=== PATIENT | male | born 1975 | race Two or more races ===

== ENCOUNTER 2024-08-24 10:23 | Inpatient (IN) | payer OTHER ==
[~2024-08-24] VITALS: Ht 185.4 cm; Wt 115.1 kg
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
[2024-08-24 11:10] LABS: Basophils # (auto) 0.1 10 ^3/uL (0-0.2); Basophils % (auto) 1.9 % (0.0-2.0); Eosinophils # (auto) 0.2 10 ^3/uL (0-0.8); Eosinophils % (auto) 2.2 % (0.0-7.0); Hematocrit 49.3 % (41.0-53.0); Lymphocytes # (auto) 2.2 10 ^3/uL (0.4-5.4); Lymphocytes % (auto) 31.7 % (10.0-50.0); Mean Corpuscular Hemoglobin 30.6 pg (28.0-32.0); Mean Corpuscular Hgb Conc. 34.4 g/dL (32.0-36.0); Mean Corpuscular Volume 88.9 fL (80.0-100.0); Monocytes # (auto) 0.5 10 ^3/uL (0-1.3); Monocytes % (auto) 6.8 % (0.0-12.0); Neutrophils % (auto) 57.4 % (37.0-80.0); Nucleated Red Blood Cells % 0.1 %; Platelet Count (auto) 190 10^3/uL (140-450); Red Blood Cells 5.54 10^6/uL (4.5-5.90); Red Cell Distribution Width 13.4 % (11.8-14.3)
[2024-08-24 11:31] LABS: Alanine Aminotransferase 64 U/L (7-40); Albumin 4.8 g/dL (3.2-4.8); Alkaline Phosphatase 84 U/L (46-116); Anion Gap 8 (5-15); Aspartate Aminotransferase 29 U/L (13-40); BUN/Creatinine Ratio 11.2 (10.0-20.0); Bilirubin, Total 0.8 mg/dL (0.2-1.0); Blood Alcohol < 3.0 mg/dL (<10); Blood Urea Nitrogen 12 mg/dL (9-23); Calcium 10.3 mg/dL (8.7-10.4); Carbon Dioxide 25 mmol/L (20-31); Chloride 105 mmol/L (98-107); Glucose 95 mg/dL (74-106); Potassium 3.7 mmol/L (3.5-5.1); Sodium 138 mmol/L (136-145)
[2024-08-24 11:32] LABS: Total Protein 7.8 g/dL (5.7-8.2)
[2024-08-24] MEDS: NALOXONE HCL 1MG/ML 2ML SYRINGE IV ONE (11:37)
[2024-08-24] MEDS ORDERED: NALOXONE HCL 2 MG in D5W 5% 495 ML IV ONE (13:30)
[2024-08-24 13:34] LABS: Amphetamine Screen, Urine Neg (NEGATIVE); Barbiturate Scree,Urine Neg (NEGATIVE); Benzodiazephine Screen, Urine Neg (NEGATIVE); Cocaine Screen, Urine Neg (NEGATIVE); Opiate Scree,Urine Neg (NEGATIVE)
[2024-08-24 13:35] LABS: Cannabinoid Screen, Urine Neg (NEGATIVE); Phencyclidine Screen, Urine Neg (NEGATIVE)
[2024-08-24] MEDS: NALOXONE HCL 2 MG in SODIUM CHL 0.9% 495 ML IV ONE (14:19)
[2024-08-24] MEDS: ACETAMINOPHEN 325 MG TAB PO ONE (14:54)
[2024-08-24 14:57] VITALS: PULSE 84; RESP 18; O2SAT 97
[2024-08-24] MEDS ORDERED: MAALOX PLUS or MAALOX 30 ML PO PRN (16:00)
[2024-08-24] MEDS ORDERED: ACETAMINOPHEN 325 MG TAB PO PRN (16:00)
[2024-08-24] MEDS ORDERED: TEMAZEPAM 15 MG CAP PO PRN (16:00)
[2024-08-24] MEDS ORDERED: DOCUSATE SOD 100 MG CAP PO PRN (16:00)
[2024-08-24] MEDS ORDERED: LORazepam 0.5 MG TAB PO PRN (16:00)
[2024-08-24] MEDS ORDERED: NALOXONE HCL 0.4 MG/ML VIAL IM PRN (16:00)
[2024-08-24] MEDS ORDERED: HYDROcodone-ACET 5/325MG TAB PO PRN (16:00)
[2024-08-24] MEDS ORDERED: MORPHINE SULFATE INJ 2 MG/ml SYRG IV PRN (16:00)
[2024-08-24] MEDS ORDERED: ONDANSETRON HCL 4 MG/2 ML VIAL IV PRN (16:00)
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
--- NOTE | 2024-08-24 16:29 | DVH ---
CHEST RADIOGRAPH Indication: base line evaluation Technique: Single frontal view of the chest was obtained Comparison: None FINDINGS: Lines and Tubes: None Lungs: No focal consolidation. Pleura: No effusion. No pneumothorax. Cardiomediastinal contours: Unremarkable Bones: No acute osseous abnormality. IMPRESSION: 1. No radiographic evidence of acute cardiopulmonary disease. HS:Y
[2024-08-24] MEDS: SODIUM CHLORIDE 0.9% 1,000 ML IV SCH (16:33)
[2024-08-24 16:54] LABS: Basophils # (auto) 0.1 10 ^3/uL (0-0.2); Basophils % (auto) 1.2 % (0.0-2.0); Eosinophils # (auto) 0.2 10 ^3/uL (0-0.8); Eosinophils % (auto) 2.6 % (0.0-7.0); Hematocrit 47.9 % (41.0-53.0); Hemoglobin 16.6 g/dL (13.5-17.5); Lymphocytes % (auto) 34.2 % (10.0-50.0); Mean Corpuscular Hemoglobin 30.6 pg (28.0-32.0); Mean Corpuscular Hgb Conc. 34.7 g/dL (32.0-36.0); Mean Corpuscular Volume 88.2 fL (80.0-100.0); Monocytes # (auto) 0.6 10 ^3/uL (0-1.3); Neutrophils # (auto) 4.7 10 ^3/uL (1.6-8.6); Nucleated Red Blood Cells % 0.1 %; Platelet Count (auto) 198 10^3/uL (140-450); Red Blood Cells 5.43 10^6/uL (4.5-5.90); Red Cell Distribution Width 13.5 % (11.8-14.3); White Blood Cell 8.6 10^3/uL (4.4-10.8)
[2024-08-24 20:22] VITALS: BP 134/96; PULSE 80; RESP 18; TEMP 98.3; O2SAT 97; O2SAT 98
[2024-08-24 21:00] VITALS: BP 132/92; PULSE 77; RESP 18; TEMP 98; O2SAT 98
[2024-08-25 01:00] VITALS: BP 115/63; PULSE 77; RESP 18; TEMP 98; O2SAT 99
[2024-08-25 05:00] VITALS: BP 129/85; PULSE 81; RESP 19; TEMP 97.9; O2SAT 97
[2024-08-25 06:39] LABS: Anion Gap 8 (5-15); Carbon Dioxide 24 mmol/L (20-31); Sodium 141 mmol/L (136-145)
[2024-08-25 06:41] LABS: Calcium 9.8 mg/dL (8.7-10.4)
--- NOTE | 2024-08-25 06:41 | ECG ---
[facility] Test Date: 2024-08-24 Test Time: 13:06:48 Pat Name: ANDREA OKCH Department: ER Room: 0249 Gender: M Topography Technician: ANA : 1975 Requested By: PIERRE KSIER Order Number: [id number] Reading MD: Measurements Intervals [place] Rate: 74 P: 33 OH: 139 QRS: 47 QRSD: 93 T: 16 QT: 393 QTc: 436 Interpretive Statements Sinus rhythm RSR' in V1 or V2, right VCD or RVH ST elev, probable normal early repol pattern Please click the below link to view image of tracing.
[2024-08-25 06:46] LABS: BUN/Creatinine Ratio 10.4 (10.0-20.0); Blood Urea Nitrogen 13 mg/dL (9-23); Glucose 95 mg/dL (74-106)
[2024-08-25 06:48] LABS: Chloride 109 mmol/L (98-107)
[2024-08-25 08:00] VITALS: PULSE 79; RESP 19; O2SAT 95
[2024-08-25 09:00] VITALS: BP 140/92; PULSE 79; RESP 19; TEMP 97.9; O2SAT 95
[2024-08-25 12:32] VITALS: BP 144/85; PULSE 70; RESP 19; TEMP 97.4; O2SAT 98
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
== END 2024-08-25 15:00 | disposition left against medical advice (07) | DRG 149 ==
LOC: EDBD 10:23 → ER 10:23 → OVERFLOW 15:54 → EAST 20:20
PROVIDERS: ADMIT Hospitalist; ATTEND Family Medicine
DX: R42 Dizziness and giddiness (principal); R00.0 Tachycardia, unspecified; R20.0 Anesthesia of skin; R53.83 Other fatigue; I10 Essential (primary) hypertension; E66.9 Obesity, unspecified; Z68.33 Body mass index [BMI] 33.0-33.9, adult; Z57.5 Occupational exposure to toxic agents in other industries
CPT/HCPCS: 36415; 71045; 80048; 80053; 80307; 80320; 85025; 93005; 99291; G0378